=== PATIENT | male | born 1930 | race Hispanic/Latino ===

== ENCOUNTER 2019-02-09 17:06 | Emergency (ER) | payer MEDICARE ==
[~2019-02-09 17:06] MED LIST: ADRENALIN ONE
--- NOTE | 2019-02-09 17:25 | Emergency Department Report ---
ED CPR HPI - General Chief Complaint: Cardiac Arrest/CPR Stated Complaint: CARDIAC ARREST Time Seen by Provider: 02/09/19 17:21 Source: EMS Mode of arrival: Stretcher Limitations: Other - History of Present Illness Initial Comments: Elderly male, appears to be in his 80s, presents to the ED by EMS in cardiac arrest. EMS states they were called to patient's home because he was unresponsive. Patient was found by in the bathroom, unknown down time. EMS unable to get any information from the . Unknown when last seen well. Upon EMS arrival patient was pulseless and apneic, ACLS was initiated. The patient was intubated, IO was placed. The patient initially asystole on the monitor. Throughout the time of EMS patient went from asystole to V. fib to PEA. Patient received a total of 4 epinephrines, 100 mg of lidocaine, and 2 defibrillations. Patient presents to ED and PEA. Patient in EMS care for approximately 25 minutes. MD Complaint: found unresponsive Place: home Initial Findings in the Field: unresponsive, no respirations, no pulse, other rhythm (asystole) ROSC in the Field: No Associated Injuries: No Associated Symptoms: other (unknown) Treatments Prior to Arrival: intubation, chest compressions, defribrillated shocks # (2), epinephrine mgs # (4), other (lidocaine 100mg) ED Review of Systems ROS: Stated complaint: CARDIAC ARREST Other details as noted in HPI Comment: Unobtainable due to pts medical conditions (cardiac arrest) ED Physical Exam - General Limitations: Other - Head Head exam: Present: atraumatic, normocephalic - Eye Pupils: Present: other (fixed and dilated bilaterally) - ENT ENT exam: Present: other (pt is intubated) - Neck Neck exam: Present: normal inspection - Respiratory Respiratory exam: Present: rales, other (no spontaneous breaths) - Cardiovascular Cardiovascular Exam: Present: other (no palpable pulse present) - GI/Abdominal GI/Abdominal exam: Present: soft. Absent: distended - Extremities Exam Extremities exam: Present: other (1+ pitting edema bilateral lower legs) - Neurological Exam Neurological exam: Present: other (GCS=3) - Skin Skin exam: Present: warm, dry, intact, normal color ED Medical Decision Making - Medical Decision Making 88-year-old male presents to the ED in cardiac arrest. The patient was found unresponsive at home, unknown down time. Initial rhythm of asystole, then V. fib which was defibrillated twice, and then PEA. Patient was in the care of EMS for 25 minutes, and in that time was given epinephrine 4, lidocaine 100 mg. Upon ED arrival patient continued to be in PEA, he was given additional doses of epinephrine, and code was run according to ACLS guidelines. However, patient , and time of was 17:06. See nurse's note for details. Family notified. - Differential Diagnosis arrythmia, STEMI, CVA, aortic dissection Critical care attestation.: If time is entered above; I have spent that time in minutes in the direct care of this critically ill patient, excluding procedure time. ED Disposition Clinical Impression: Cardiac arrest Disposition: DC-20 Is pt being admited?: No Referrals: PRIMARY CARE, [Primary Care Provider] - 3-5 Days
== END 2019-02-09 21:49 ==
LOC: ED 17:06
DX: I46.9 Cardiac arrest, cause unspecified (principal)
CPT/HCPCS: 99285; J0171